=== PATIENT | female | born 1975 | race Caucasian/White ===

== ENCOUNTER → 2020-06-17 14:25 | Outpatient (CLI) | payer OTHER, SELFPAY ==
--- NOTE | ~2020-06-17 | MR_ITS ---
EXAMINATION: MR cervical spine wo con DATE: 06/17/2020 15:06 INDICATION: Cervicobrachial syndrome. Neck pain. TECHNIQUE: Magnetic resonance imaging (MRI) of the cervical spine was performed without intravenous c ontrast. Sequences included sagittal T2-weighted FSE, sagittal T2-weighted FS FSE, sagittal T1-weight ed FSE, axial MERGE, and axial T2-weighted FSE. COMPARISON: None FINDINGS: Bone alignment is normal. Vertebral body heights are normal. There is mildly decreased disc height at C4-C5 and C5-C6. The spinal cord signal intensity is normal. The following disc levels are specifically discussed: C2-C3: The disc is bulging. There is mild left uncovertebral joint osteoarthritis. There is mild bila teral facet joint osteoarthritis. There is no neural foraminal stenosis. There is no central canal st enosis. C3-C4: The disc does not extend beyond the endplate margin. There is no uncovertebral joint osteoarth ritis. There is mild bilateral facet joint osteoarthritis. There is no neural foraminal stenosis. The re is no central canal stenosis. C4-C5: There is a central extrusion. There is no uncovertebral joint osteoarthritis. There is mild bi lateral facet joint osteoarthritis. There is no neural foraminal stenosis. There is mild central su l stenosis. C5-C6: The disc is bulging. There is mild bilateral uncovertebral joint osteoarthritis. There is mild bilateral facet joint osteoarthritis. There is no neural foraminal stenosis. There is mild central c anal stenosis. C6-C7: There is a central protrusion. There is no uncovertebral joint osteoarthritis. There is no fac et joint osteoarthritis. There is no neural foraminal stenosis. There is no central canal stenosis. C7-T1: The disc does not extend beyond the endplate margin. There is no uncovertebral joint osteoarth ritis. There is mild bilateral facet joint osteoarthritis. There is no neural foraminal stenosis. The re is no central canal stenosis. IMPRESSION: 1. Mild cervical spondylosis. Reviewed, dictated and finalized at location A.
== END ==
DX: M53.1 Cervicobrachial syndrome (principal); M47.892 Other spondylosis, cervical region
CPT/HCPCS: 72141

== ENCOUNTER → 2020-10-14 11:06 | Outpatient (CLI) | payer OTHER, SELFPAY ==
--- NOTE | ~2020-10-14 | XR_ITS ---
EXAMINATION: XR chest 2V 10/14/2020 11:31 INDICATION: Dyspnea with exertion PROCEDURE: 2 view chest COMPARISON: 01/18/2013 FINDINGS: The lungs are clear. The cardiomediastinal silhouette is within normal limits. There are no pleural effusions. There is no pneumothorax suspected. IMPRESSION: 1: NO ACUTE CARDIOPULMONARY DISEASE. Reviewed, dictated and finalized at location A. IALIST PHYSICIAN
== END ==
PROVIDERS: Visit Provider Nurse Practitioner Family
DX: R06.09 Other forms of dyspnea (principal)
CPT/HCPCS: 71046

== ENCOUNTER → 2020-10-29 12:54 | Outpatient (CLI) | payer OTHER, SELFPAY ==
--- NOTE | ~2020-10-29 | CT_ITS ---
EXAMINATION: CT chest wo con DATE: 10/29/2020 13:12 INDICATION: Chest pain, atypical; shortness of breath. Arm numbness. TECHNIQUE: Computed tomography (CT) of the chest was performed without intravenous contrast. Automate d exposure control and iterative reconstruction technique were employed. Exam dose: 161.65 mGy-cm to mariam exam DLP. COMPARISON: 10/14/2020 2 view chest FINDINGS: Normal heart size. No pericardial or pleural effusion. The ascending aorta measures up to approximately 4 cm diameter; the mid thoracic aortic arch and desc ending thoracic aorta are normal caliber. No hilar or mediastinal mass lesion or lymphadenopathy. Approximately 2.5 mm superior segment right lower lobe pulmonary nodule (series 4 image 60). Left upper lobe calcified pulmonary granuloma. No pulmonary infiltrate or consolidation or pulmonary mass lesion. Small sliding type hiatal hernia. Incidental finding of gastric bypass surgery. IMPRESSION: Ascending aortic aneurysm Small sliding hiatal hernia Status post gastric bypass surgery Reviewed, dictated and finalized at Location A. Reviewed, dictated and finalized at location A. MAKER TRIM
== END ==
PROVIDERS: PCP Family Medicine; Visit Provider Family Medicine
DX: R07.89 Other chest pain (principal); I71.4 Abdominal aortic aneurysm, without rupture; Z98.84 Bariatric surgery status
CPT/HCPCS: 71250

== ENCOUNTER → 2021-08-26 15:21 | Outpatient (CLI) | payer BC, SELFPAY ==
--- NOTE | ~2021-08-26 | MR_ITS ---
EXAMINATION: MR thoracic spine wo con DATE: 08/26/2021 16:52 INDICATION: Paresthesias of skin with numbness to the bilateral upper and lower extremities. TECHNIQUE: Magnetic resonance imaging (MRI) of the thoracic spine was performed without intravenous c ontrast. Sagittal localizer T1-weighted FSE of the cervicothoracic spine was obtained. Thoracic spine sequences included sagittal T2-weighted FSE, sagittal T1-weighted SE, sagittal fluid sensitive FSE S TIR, sagittal T2-weighted FS FSE, and axial T2-weighted FSE. COMPARISON: None FINDINGS: Mild thoracic dextrocurvature. Sagittal alignment is normal. Vertebral body heights are normal. T1 hy perintense hemangiomas at T10 and T12. Otherwise normal marrow signal. Mild disc height extending fro m T2 to T3 through T12-L1 relatively sparing at T11-T12. There is normal spinal cord signal. The conu s terminates at L1. Small central disc protrusion at T9-T10 and T10-T11 and mild diffuse disc bulge a t T12-L1 without significant central canal stenosis. Multilevel mild thoracic facet osteoarthritis. N o significant neural foraminal stenosis. IMPRESSION: 1. Mild thoracic dextrocurvature and mild spondylosis. Reviewed, dictated and finalized at location B.
--- NOTE | ~2021-08-26 | MR_ITS ---
EXAMINATION: MR cervical spine wo con DATE: 08/26/2021 16:52 INDICATION: Paresthesias of skin. Bilateral arm and leg numbness. TECHNIQUE: Magnetic resonance imaging (MRI) of the cervical spine was performed without intravenous c ontrast. Sequences included sagittal T2-weighted FSE, sagittal STIR FSE, sagittal T1-weighted FSE, ax ial MERGE, and axial T2-weighted FSE. COMPARISON: Cervical spine MRI 06/17/2020 FINDINGS: There is 7 degrees dextrocurvature of cervicothoracic spine. Vertebral body heights are nor mal. There is mildly decreased disc height at C4-C5 and C5-C6. The spinal cord signal intensity is no rmal. The following disc levels are specifically discussed: C2-C3: The disc is bulging. There is mild left uncovertebral joint osteoarthritis. There is mild bila teral facet joint osteoarthritis. There is no neural foraminal stenosis. There is no central canal st enosis. C3-C4: The disc does not extend beyond the endplate margin. There is no uncovertebral joint osteoarth ritis. There is no facet joint osteoarthritis. There is no neural foraminal stenosis. There is no keith tral canal stenosis. C4-C5: There is a central protrusion. There is no uncovertebral joint osteoarthritis. There is no fac et joint osteoarthritis. There is no neural foraminal stenosis. There is no central canal stenosis. C5-C6: There is a left central and foraminal zone extrusion. There is mild bilateral uncovertebral abdirashid int osteoarthritis. There is no facet joint osteoarthritis. There is mild left neural foraminal steno sis. There is mild central canal stenosis. C6-C7: The disc does not extend beyond the endplate margin. There is no uncovertebral joint osteoarth ritis. There is mild left facet joint osteoarthritis. There is no neural foraminal stenosis. There is no central canal stenosis. C7-T1: The disc does not extend beyond the endplate margin. There is no uncovertebral joint osteoarth ritis. There is mild left facet joint osteoarthritis. There is no neural foraminal stenosis. There is no central canal stenosis. IMPRESSION: 1. Mild cervical spondylosis, stable from 06/17/2020. Reviewed, dictated and finalized at location A.
== END ==
PROVIDERS: PCP Family Medicine; Visit Provider Psychiatry & Neurology Neurology
DX: R20.2 Paresthesia of skin (principal); R20.0 Anesthesia of skin; M41.9 Scoliosis, unspecified; M47.815 Spondylosis without myelopathy or radiculopathy, thoracolumbar region; M47.813 Spondylosis without myelopathy or radiculopathy, cervicothoracic region; M48.03 Spinal stenosis, cervicothoracic region
CPT/HCPCS: 72141; 72146

== ENCOUNTER → 2021-11-18 10:58 | Outpatient (CLI) | payer BC, SELFPAY ==
--- NOTE | ~2021-11-18 | CT_ITS ---
EXAMINATION:CT diagnostic chest wo con DATE: 11/18/2021 11:16 INDICATION: Thoracic aortic aneurysm. Chest tightness. TECHNIQUE: Computed tomography (CT) of the chest was performed without intravenous contrast. Automate d exposure control and iterative reconstruction technique were employed. The dose-length product (DLP ) was 146.35 mGy-cm. COMPARISON: Chest CT 10/29/2020 FINDINGS: The lungs demonstrate minimal atelectasis. A calcified left lung nodule is consistent with old granulomatous disease. No pleural effusion. The heart size is normal. No pericardial effusion. As cending aorta is normal in caliber and measures 3.8 cm. There are surgical changes of the stomach. Th ere is mild thoracic spondylosis. Thoracic dextroscoliosis is noted. IMPRESSION: 1. Normal thoracic aorta. Reviewed, dictated and finalized at location B. TER WEIGHER IMPRESSION: 1. Normal thoracic aorta.
== END ==
PROVIDERS: PCP Family Medicine; Visit Provider Nurse Practitioner
DX: I71.2 Thoracic aortic aneurysm, without rupture (principal)
CPT/HCPCS: 71250

== ENCOUNTER → 2023-02-05 11:59 | Outpatient (CLI) | payer BC, SELFPAY ==
--- NOTE | ~2023-02-05 | XR_ITS ---
EXAMINATION: XR fl inj shoulder RT - MR/CT DATE: 02/05/2023 13:04 INDICATION: Right shoulder pain TECHNIQUE: A time-out was performed to verify the patient's name, date of , and procedure to b e performed. The procedure including the risks, benefits, and alternatives was discussed with the pat ient. Risks discussed included bleeding and infection. The patient understood the risks and agreed to proceed. The skin overlying the rotator cuff interval of the right glenohumeral joint was prepped a nd draped in usual sterile fashion. Anesthetic was administered with 1% lidocaine subcutaneously. A 22 G needle was advanced under fluoroscopic guidance into the joint. Injection of 1 mL of Omnipaque 240 confirmed intra-articular position of the needle. Subsequently, injectate consisting of 12 mL o f 2:1:1 mixture of sterile saline:Omnipaque 240:1% lidocaine mixed 200:1 with 529 mg/mL Multihance ga dolinium contrast was injected with intra-articular administration confirmed with intermittent fluoro scopy. The needle was removed and the entry site was cleaned and dressed. There were no immediate co mplications. Fluoroscopy exposure time was 0.3 minutes. The total number of images was 81. Total DAP was 0.246 Gycm^2 FINDINGS: Real-time fluoroscopy demonstrates the needle in the right glenohumeral joint. IMPRESSION: 1. Successful right glenohumeral joint injection of a dilute gadolinium contrast mixed for subsequent MRI arthrogram which will be dictated separately. Reviewed, dictated and finalized at location B. IMPRESSION: 1. Successful right glenohumeral joint injection of a dilute gadolinium contras t mixed for subsequent MRI arthrogram which will be dictated separately.
--- NOTE | ~2023-02-05 | MR_ITS ---
EXAMINATION: MR shoulder RT w con DATE: 02/05/2023 13:21 INDICATION: Right shoulder pain TECHNIQUE: Magnetic resonance imaging (MRI) of the right shoulder was performed following intra-abril cular gadolinium contrast injection and without intravenous contrast. Details of the glenohumeral nina nt injection have been dictated separately. Sequences included axial T2-weighted FS FSE, axial T1-we ighted FS FSE, coronal oblique T1-weighted FS FSE, coronal oblique T2-weighted FSE, sagittal T2-weigh gael FS FSE, sagittal T1-weighted FSE, and ABER (abduction external rotation) T1-weighted FS FSE. COMPARISON: None. FINDINGS: Coracoacromial arch: The acromion undersurface is curved in morphology (type II). The coracoacromial ligament is normal. M ild acromioclavicular osteoarthritis. Rotator cuff: The supraspinatus, infraspinatus and teres minor are normal. The subscapularis is normal. There is a small amount of contrast within the cephalad-most portion of the supraspinatus muscle belly and into the fat at the rotator cuff interval. This extravasation was observed occurring at the site of inject ion due to the needle backing out slightly during the very beginning of the joint injection. The need le was repositioned with no further extravasation of contrast during the remainder of the joint injec tion which was observed with intermittent fluoroscopy. Otherwise normal muscle signal with no asymmet mahin atrophy. Biceps tendon, glenoid labrum and glenohumeral cartilage: Long head of the biceps tendon is intact. There is a superior, anterior to posterior tear of the eric oid labrum (SLAP tear) beginning anteriorly at the 12:00 position and extending posteriorly to the 11 :00 position. The inferior labrum is diminutive. Glenohumeral cartilage is normal. Bones and other: Normal marrow signal with no edema, fracture or abnormal marrow replacing process. Small amount of f luid in the subacromial/subdeltoid bursa consistent with mild bursitis. No abnormal fluid in the suba cromial/subdeltoid bursa. IMPRESSION: 1. SLAP tear at the 12:00-11:00 position of the posterosuperior glenoid labrum. Reviewed, dictated and finalized at location B.
== END ==
PROVIDERS: PCP Family Medicine
DX: S43.431A Superior glenoid labrum lesion of right shoulder, initial encounter (principal); X58.XXXA Exposure to other specified factors, initial encounter
CPT/HCPCS: 23350; 73222; 77002; A9577; Q9967

== ENCOUNTER → 2023-09-14 11:25 | Outpatient (CLI) | payer BC, SELFPAY ==
--- NOTE | ~2023-09-14 | MM_ITS ---
EXAMINATION: MM screening [facility] w jack HISTORY: Screening mammogram TECHNIQUE: Craniocaudal and mediolateral oblique 3-D tomosynthesis images were obtained and synthetic 2-D images were generated. CAD analysis was submitted and interpreted. COMPARISON: No prior mammogram is available for comparison at this institution. BREAST PARENCHYMAL COMPOSITION: The breasts are heterogeneously dense, which may obscure small masses . FINDINGS: There is no evidence of suspicious mass, calcification, or architectural distortion to sugg est malignancy in either breast. IMPRESSION: 1. No mammographic evidence of malignancy. 2. Recommend routine screening mammography in one year. BI-RADS Category 1: Negative Reviewed, dictated and finalized at location A.
== END ==
PROVIDERS: Visit Provider Family Medicine
DX: Z12.31 Encounter for screening mammogram for malignant neoplasm of breast (principal)
CPT/HCPCS: 77063; 77067

== ENCOUNTER 2024-09-18 13:37 | Outpatient (CLI) | payer OTHER, BC, SELFPAY ==
--- NOTE | ~2024-09-18 | MM_ITS ---
EXAMINATION: MM screening [facility] BI w jack HISTORY: Screening mammogram TECHNIQUE: Craniocaudal and mediolateral oblique 3-D tomosynthesis images were obtained and synthetic 2-D images were generated. CAD analysis was submitted and interpreted. COMPARISON: 09/14/2023 BREAST PARENCHYMAL COMPOSITION:Dense: The breasts are heterogeneously dense, which may obscure small masses. FINDINGS: Stable calcifications at the upper, outer right breast. No suspicious mass, calcification, or architectural distortion are identified in either breast to suggest malignancy. There has been no suspicious interval change. IMPRESSION: No mammographic evidence of malignancy. Recommend routine screening mammography in one year. BI-RADS Category 2: Benign finding(s). Reviewed, dictated and finalized at location .
== END 2024-09-18 13:38 | disposition home or self-care (01) ==
PROVIDERS: PCP Internal Medicine; Visit Provider Internal Medicine
DX: Z12.31 Encounter for screening mammogram for malignant neoplasm of breast (principal)
CPT/HCPCS: 77063; 77067

== ENCOUNTER 2025-10-02 14:30 | Outpatient (CLI) | payer OTHER, BC, SELFPAY ==
--- NOTE | ~2025-10-02 | MM_ITS ---
EXAMINATION: MM screening [facility] BI w jack HISTORY: Screening TECHNIQUE: Craniocaudal and mediolateral oblique 3-D tomosynthesis images were obtained and synthetic 2-D images were generated. CAD analysis was submitted and interpreted. COMPARISON: Comparison to multiple prior studies sequentially, with oldest reviewed study dated 09/14/2023. BREAST PARENCHYMAL COMPOSITION: Not dense: There are scattered areas of fibroglandular density. FINDINGS: There are increasing number of indeterminate clustered calcifications upper outer quadrant of the right breast, middle third. The left breast is stable without evidence for malignancy. IMPRESSION: 1. No mammographic evidence of malignancy. Cluster of indeterminate calcifications upper outer quadrant of the left breast with increased number compared with prior study. 2. Magnification views are recommended. BI-RADS Category 0: Incomplete: Needs additional imaging evaluation. Reviewed, dictated and finalized at location B. L FITTER IMPRESSION: 1. No mammographic evidence of malignancy. Cluster of indeterminate calcificati ons upper outer quadrant of the left breast with increased number compared with prior study. 2. Magnification views are recommended. BI-RADS Category 0: Incomplete: Needs additional imaging evaluation.
== END 2025-10-02 14:31 | disposition home or self-care (01) ==
LOC: MICIMG 14:31
PROVIDERS: PCP Internal Medicine; Visit Provider Obstetrics & Gynecology
DX: Z12.31 Encounter for screening mammogram for malignant neoplasm of breast (principal); R92.8 Other abnormal and inconclusive findings on diagnostic imaging of breast
CPT/HCPCS: 77063; 77067

== ENCOUNTER 2025-11-20 09:23 | Outpatient (CLI) | payer OTHER, BC, SELFPAY ==
--- OUTSIDE RECORDS SUMMARY | 2025-05-21 08:30 | XMS_ITS ---
Author Organization [facility] [place] ([address]) Address [address] [address] Care Team Providers Care Slide Machine Tender Name Role Phone Ashish Gonzalez Primary Care Provider Felicity Mays Unavailable [phone] Vito Chin Unavailable [phone] REASON FOR VISIT POWER REGULATOR IV Fluids Medications Medication SIG (Take, Route, Frequency, Duration) Notes Start Date End Date Status Mirabegron ER 50 MG TAKE 1 TABLET BY MOUTH DAILY Oral; Duration: 20 Days Active ALPRAZolam 0.5 MG TAKE 1 TABLET BY MOUTH THREE TIMES DAILY NEEDED Oral; Duration: 30 Days Active Eszopiclone 3 MG TAKE 1 TABLET BY MOUTH EVERY DAY Oral; Duration: 30 Days Active HYDROcodone-Acetaminop hen 5-325 MG Oral; Duration: 15 Days Active Topiramate 50 MG 2 tablets in AM, then 3 tablets in PM Orally as directed; Duration: 30 days (total 250 mg daily) 05/09/2025 Active Nortriptyline HCl 10 MG TAKE 1 CAPSULE BY MOUTH AT BEDTIME Oral; Duration: 30 Days Active Emgality 120 MG/ML 1 injection as maintenance dose Subcutaneous once every 4 weeks; Duration: 28 days To start 4 weeks after loading dose 06/04/2025 Active Ubrelvy 100 MG 1 tablet Orally twice a day; Duration: 30 days As needed Active Emgality 120 MG/ML 2 injections as LOADING DOSE for the first month Subcutaneous once; Duration: 28 days 05/07/2025 Active Social History Sex Assigned At : Social History Observation Description Sex Assigned At Female Vital Signs Temperature 98.4 degrees Fahrenheit 05/21/20 25 Blood pressure systolic 126 mm Hg 05/21/20 25 Blood pressure diastolic 79 mm Hg 025 Respiratory Rate 16 /min 05/21/2025 Oximetry 100 % 05/21/2025 Encounters Encounter Location Date Provider Diagnosis [facility] [place] ([address]) [address] [place] [address] 05/21/2025 Vito Chin Hormone replacement therapy Z79.890 Assessments Encounter Date Diagnosis (ICD Code) Assessment Notes Treatment Notes Treatment Clinical Notes Section Notes 05/21/2025 Hormone replacement therapy (ICD-10 - Z79.890) Post infusion vitals BP 127/75, HR 64, R 16,T 98.2, 02 97% Plan Of Treatment No Information Procedure Notes * Category Sub-Category Detail Notes Quell: IV Fluid Micronutriti on & Hydration IV Fluid Preparation Quell Signature Blend A: Quell's Blend Volume 0.9% Sodium Chloride, PRISON: 1000 mL Infusion Time Total: 60 minutes Reaction Adverse Reaction(s):: None Progress Notes * YOHANNOEMI RenardGeorgeOB :1975 (50 yo F)Acc No.[id number]:05/21/2025 IV Fluids & Nutrition 69 Patient: Apple MENDOZA Provider: Albert Chin MD :1975 A ge:49 Y S ex:Female Date:05/21/2025 Address: [address], [facility] Pcp:Ashish Gonzalez Subjective: * Chief Complaints: * 1 . POWER REGULATOR IV Fluids. * Medical History: * Medications: T aking HYDROcodone-Acetaminophen 5-325 MG Tablet Oral , Taking ALPRAZolam 0.5 MG Tablet TAKE 1 TABLET BY MOUTH THREE TIMES DAILY NEEDED Oral , Taking Eszopiclone 3 MG Tablet TAKE 1 TABLET BY MOUTH EVERY DAY Oral , Taking Mirabegron ER 50 MG Tablet Extended Release 24 Hour TAKE 1 TABLET BY MOUTH DAILY Oral , Taking Nortriptyline HCl 10 MG Capsule TAKE 1 CAPSULE BY MOUTH AT BEDTIME Oral , Taking Ubrelvy 100 MG Tablet 1 tablet Orally twice a day As needed, Taking Emgality 120 MG/ML Solution Auto-injector 2 injections as LOADING DOSE for the first month Subcutaneous once , Taking Emgality 120 MG/ML Solution Auto-injector 1 injection as maintenance dose Subcutaneous once every 4 weeks , Notes to Pharmacist: To start 4 weeks after loading dose, Taking Topiramate 50 MG Tablet 2 tablets in AM, then 3 tablets in PM Orally as directed (total 250 mg daily) Objective: * Vitals: T emp:98.4F, BP:126/79mm Hg, HR:72/min, RR:16/min, Pulse Oximetry:100%. Assessment: * Assessment: 1. H ormone replacement therapy - Z79.890 Post infusion vitals BP 127/ 75, HR 64, R 16,T 98.2, 02 97% Plan: * Treatment: * Procedures: Q uell: IV Fluid Micronutrition & Hydration: IV Fluid Preparation Q uell Signature Blend A Q uell's Blend Volume 0 .9% Sodium Chloride, PRISON 1 000 mL Infusion Time T otal 6 0 minutes Reaction A dverse Reaction(s): N one * Billing Information: * Visit Code: * Procedure Codes: 12877 Quell Terrie IV Fluid (monthly). * Electronic signature of Solo Chin MD, FAAAAI on 11/20/2025 at 09:39 AM BIRD KEEPER Sign off status: Pending * Provider: Albert Chin MD Date: 0 05/21/2025 Generated for Leandro lucas/Gabriel/Sydneeitting on: 09:39 AM BIRD KEEPER
--- OUTSIDE RECORDS SUMMARY | 2025-05-21 09:30 | XMS_ITS ---
Author Organization [facility] [place] ([address]) Address [address] [address] Care Team Providers Care Fish Protector Name Role Phone Ashish Gonzalez Primary Care Provider Felicity Mays Unavailable [phone] Vito Chin Unavailable [phone] REASON FOR VISIT PAN PUSHER BHRT Medications Medication SIG (Take, Route, Frequency, Duration) Notes Start Date End Date Status Topiramate 50 MG 2 tablets in AM, then 3 tablets in PM Orally as directed; Duration: 30 days (total 250 mg daily) 05/09/2025 Active Emgality 120 MG/ML 1 injection as maintenance dose Subcutaneous once every 4 weeks; Duration: 28 days To start 4 weeks after loading dose 06/04/2025 Active Emgality 120 MG/ML 2 injections as LOADING DOSE for the first month Subcutaneous once; Duration: 28 days 05/07/2025 Active Ubrelvy 100 MG 1 tablet Orally twice a day; Duration: 30 days As needed Active Nortriptyline HCl 10 MG TAKE 1 CAPSULE BY MOUTH AT BEDTIME Oral; Duration: 30 Days Active Mirabegron ER 50 MG TAKE 1 TABLET BY MOUTH DAILY Oral; Duration: 20 Days Active Eszopiclone 3 MG TAKE 1 TABLET BY MOUTH EVERY DAY Oral; Duration: 30 Days Active ALPRAZolam 0.5 MG TAKE 1 TABLET BY MOUTH THREE TIMES DAILY NEEDED Oral; Duration: 30 Days Active HYDROcodone-Acetaminop hen 5-325 MG Oral; Duration: 15 Days Active Social History Sex Assigned At : Social History Observation Description Sex Assigned At Female Encounters Encounter Location Date Provider Diagnosis [facility] [place] ([address]) [address] [address] 05/21/2025 Vito Chin Assessments Encounter Date Diagnosis (ICD Code) Assessment Notes Treatment Notes Treatment Clinical Notes Section Notes 05/21/2025 Other Discussed recommendations for the following supplements:-Vitami n D, Biote ADK 10 or Pure Encapsulations Vitamin D3-Biote Methyl factors or Pure Encapsulations B-Complex Plus-Fatty 15 Plan Of Treatment Treatment Notes Assessment Notes Other Discussed recommenda tions for the following supplements:-Vitamin D, Biote ADK 10 or Pure Encapsulations Vitamin D3-Biote Methyl factors or Pure Encapsulations B-Complex Plus-Fatty 15 Progress Notes * JERONIMOJordan BUCKOB :1975 (50 yo F)Acc No.[id number]:05/21/2025 PAN PUSHER RT Patient: Apple MENDOZA Provider: Albert Chin MD :1975 A ge:49 Y S ex:Female Date:05/21/2025 Address:[address] [place] [address] [place] [facility] Pcp:Ashish Gonzalez Subjective: * Chief Complaints: * 1 . PAN PUSHER BHRT. * Medical History: * Medications: T aking [...] (total 250 mg daily) Objective: * Vitals: Assessment: Plan: * Treatment: * Billing Information: * Visit Code: * Procedure Codes: * Electronic signature of Solo Chin MD, FAAAAI on 11/20/2025 at 09:40 AM MACHINE BASTER Sign off status: Pending * Provider: Albert Chin MD Date: 0 05/21/2025 Generated for Leandro lucas/Gabriel/Tiffany on: 1 09:40 AM MACHINE BASTER
--- OUTSIDE RECORDS SUMMARY | 2025-06-04 09:30 | XMS_ITS ---
Author Organization [facility] [place] ([address]) Address [address] [address] Care Team Providers Care Manager Training And Development Name Role Phone Ashish Gonzalez Primary Care Provider Felicity Mays Unavailable [phone] Vito Chin Unavailable [phone] REASON FOR VISIT IV Fluids Follow-up Medications Medication SIG (Take, Route, Frequency, Duration) Notes Start Date End Date Status Nortriptyline HCl 10 MG TAKE 1 CAPSULE BY MOUTH AT BEDTIME Oral; Duration: 30 Days Active Ubrelvy 100 MG 1 tablet Orally twice a day; Duration: 30 days As needed Active Topiramate 50 MG 2 tablets in AM, then 3 tablets in PM Orally as directed; Duration: 30 days (total 250 mg daily) 05/09/2025 Active Emgality 120 MG/ML 2 injections as LOADING DOSE for the first month Subcutaneous once; Duration: 28 days 05/07/2025 Active Emgality 120 MG/ML 1 injection as maintenance dose Subcutaneous once every 4 weeks; Duration: 28 days To start 4 weeks after loading dose 06/04/2025 Active Eszopiclone 3 MG TAKE 1 TABLET BY MOUTH EVERY DAY Oral; Duration: 30 Days Active Mirabegron ER 50 MG TAKE 1 TABLET BY MOUTH DAILY Oral; Duration: 20 Days Active HYDROcodone-Acetaminop hen 5-325 MG Oral; Duration: 15 Days Active ALPRAZolam 0.5 MG TAKE 1 TABLET BY MOUTH THREE TIMES DAILY NEEDED Oral; Duration: 30 Days Active Social History Sex Assigned At : Social History Observation Description Sex Assigned At Female Encounters Encounter Location Date Provider Diagnosis [facility] [place] ([address]) [address] [place] [address] 06/04/2025 Vito Chin Plan Of Treatment No Information Procedure Notes * Category Sub-Category Detail Notes Quell: IV Fluid Micronutriti on & Hydration IV Fluid Preparation Quell Signature Blend A: Quell's Blend Volume 0.9% Sodium Chloride, LONGTERM: 1000 mL Infusion Time Total: 60 minutes Reaction Adverse Reaction(s):: None Progress Notes * EMELIAJASMINJose FranciscoRenard BUCKenDOB :1975 (50 yo F)Acc No.[id number]:06/04/2025 IV Fluids & Nutrition 69 Patient: Sheree ZIEGLERMANGOApple Provider: Albert Chin MD :1975 A ge:49 Y S ex:Female Date:06/04/2025 [facility] [facility] Pcp:Ashish Gonzalez Subjective: * Chief Complaints: * 1 . IV Fluids Follow-up. * Medical History: * Medications: T aking [...] * Vitals: Assessment: Plan: * Treatment: * Procedures: Q uell: IV Fluid Micronutrition & Hydration: IV Fluid Preparation Q uell Signature Blend A Q uell's Blend Volume 0 .9% Sodium Chloride, LONGTERM 1 000 mL Infusion Time T otal 6 0 minutes Reaction A dverse Reaction(s): N one T oradol 30 mg IV added. * Billing Information: * Visit Code: * Procedure Codes: * Electronic signature of Solo Chin MD, FAAAAI on 11/20/2025 at 09:39 AM APPAREL STOCK CHECKER Sign off status: Pending * Provider: Albert Chin MD Date: 0 06/04/2025 Generated for Leandro lucas/Gabriel/Tiffany on: 1 09:39 AM APPAREL STOCK CHECKER
--- OUTSIDE RECORDS SUMMARY | 2025-06-13 03:00 | XMS_ITS ---
Author Organization [facility] [place] ([address]) Address [address] [address] Care Team Providers Care Docket Clerk Name Role Phone Ashish Gonzalez Primary Care Provider Felicity Mays Unavailable [phone] Vito Chin Unavailable [phone] REASON FOR VISIT IV Fluids Follow-up Medications Medication SIG (Take, Route, Frequency, Duration) Notes Start Date End Date Status Emgality 120 MG/ML 1 injection as maintenance dose Subcutaneous once every 4 weeks To start 4 weeks after loading dose 06/04/2025 Active Ubrelvy 100 MG 1 tablet Orally twice a day As needed Active Topiramate 50 MG 2 tablets in AM, then 3 tablets in PM Orally as directed (total 250 mg daily) 05/09/2025 Active Emgality 120 MG/ML 2 injections as LOADING DOSE for the first month Subcutaneous once; Duration: 28 days 05/07/2025 Active Cyclobenzaprine HCl 5 MG 1 tablet Orally 3 times a day; Duration: 30 days As needed 06/07/2025 Active Mirabegron ER 50 MG TAKE 1 TABLET BY MOUTH DAILY Oral; Duration: 20 Days Active Eszopiclone 3 MG TAKE 1 TABLET BY MOUTH EVERY DAY Oral; Duration: 30 Days Active Nortriptyline HCl 10 MG TAKE 1 CAPSULE B Y MOUTH AT BEDTIME Oral; Duration: 30 Days Active ALPRAZolam 0.5 MG TAKE 1 TABLET BY MOUTH THREE TIMES DAILY NEEDED Oral; Duration: 30 Days Active HYDROcodone-Acetaminoph en 5-325 MG Oral; Duration: 15 Days Active Social History Sex Assigned At : Social History Observation Description Sex Assigned At Female Encounters Encounter Location Date Provider Diagnosis [facility] [place] ([address]) [address] [place] [address] 06/13/2025 Vito Chin Plan Of Treatment No Information Procedure Notes * Category Sub-Category Detail Notes Quell: IV Fluid Micronutriti on & Hydration IV Fluid Preparation Quell Signature Blend A: Quell's Blend Volume 0.9% Sodium Chloride, HALFWAY: 1000 mL Infusion Time Total: 60 minutes Reaction Adverse Reaction(s):: None Progress Notes * Jordan LOPEZOB :1975 (50 yo F)Acc No.[id number]:06/13/2025 IV Fluids & Nutrition 69 Patient: Sheree Apple GUADALUPE Provider: Albert Chin MD :1975 A ge:49 Y S ex:Female Date:06/13/2025 Address:[address] [place] [address] [facility] Pcp:Ashish Gonzalez Subjective: * Chief Complaints: [...] BY MOUTH AT BEDTIME Oral , Taking Emgality 120 MG/ML Solution Auto-injector 2 injections as LOADING DOSE for the first month Subcutaneous once , Taking Ubrelvy 100 MG Tablet 1 tablet Orally twice a day As needed, Taking Emgality 120 MG/ML Solution Auto-injector 1 injection as maintenance dose Subcutaneous once every 4 weeks , Notes to Pharmacist: To start 4 weeks after loading dose, Taking Topiramate 50 MG Tablet 2 tablets in AM, then 3 tablets in PM Orally as directed (total 250 mg daily), Taking Cyclobenzaprine HCl 5 MG Tablet 1 tablet Orally 3 times a day As needed Objective: * Vitals: Assessment: Plan: * Treatment: * Procedures: Q uell: IV Fluid Micronutrition & Hydration: IV Fluid Preparation Q uell Signature Blend A Q uell's Blend Volume 0 .9% Sodium Chloride, HALFWAY 1 000 mL Infusion Time T otal 6 0 minutes Reaction A dverse Reaction(s): N one * Billing Information: * Visit Code: * Procedure Codes: * Electronic signature of Solo Chin MD, FAAAAI on 11/20/2025 at 09:40 AM CATALYTIC CASE OPERATOR Sign off status: Pending * Provider: Albert Chin MD Date: 0 06/13/2025 Generated for Leandro lucas/Gabriel/Tiffany on: 1 09:40 AM CATALYTIC CASE OPERATOR
--- OUTSIDE RECORDS SUMMARY | 2025-07-19 11:00 | XMS_ITS ---
Author Organization [facility] [facility] [employer] [place] ([address]) Address [address] [address] Care Team Providers Care Floral Manager Name Role Phone Ashish Gonzalez Primary Care Provider Felicity Mays Unavailable [phone] Vito Chin [phone] REASON FOR VISIT Product or Supplement Purchase Social History Sex Assigned At : Social History Observation Description Sex Assigned At Female Encounters Encounter Location Date Provider Diagnosis [facility] ([address]) [address] [address] 07/19/2025 Vito Chin Plan Of Treatment No Information Progress Notes * Jordan LOPEZOB :1975 (50 yo F)Acc No.[id number]:07/19/2025 Purchase Patient: Sheree KNUTSONNOEMIAdrianApple Provider: Albert Chin MD :1975 A ge:49 Y S ex:Female Date:07/19/2025 [address] [facility] Pcp:Ashish Gonzalez Subjective: * Chief Complaints: * 1 . Product or Supplement Purchase. * Medical History: Objective: * Vitals: Assessment: Plan: * Treatment: * Billing Information: * Visit Code: * Procedure Codes: * Electronic signature of Solo Chin MD, FAAAAI on 11/20/2025 at 09:40 AM AIRPORT BAGGAGE SCREENER Sign off status: Pending * Provider: Albert Chin MD Date: 0 07/19/2025 Generated for Leandro lucas/Gabriel/Tiffany on: 1 09:40 AM AIRPORT BAGGAGE SCREENER
--- OUTSIDE RECORDS SUMMARY | 2025-09-05 11:30 | XMS_ITS ---
Author Organization [facility] [place] ([address]) Address [address] [facility] [address] [place] [address] Care Team Providers Care Farm Labor Contractor Name Role Phone Gonzalez Ashish Primary Care Provider UnavailFelicity Forrest Unavailable [phone] REASON FOR VISIT Chronic upper airway symptoms concerning for uncontrolled atopic disease, Chronic lower airways symptoms concerning for possible asthma Social History Sex Assigned At : Social History Observation Description Sex Assigned At Female Problems Problem Type SNOMED Code ICD Code Onset Dates Problem Status W/U Status Risk Notes Problem Allergic rhinitis caused by pollen (disorder) (78516703) Allergic rhinitis due to pollen (J30.1) Active confirmed Problem Allergic rhinitis caused by animal hair and dander ([id number]) Allergic rhinitis due to animal (cat) (dog) hair and dander (J30.81) Active confirmed Problem Allergic rhinitis (16283116) Other allergic rhinitis (J30.89) Active confirmed Problem Chronic allergic conjunctivitis (58887743) Other chronic allergic conjunctivitis (H10.45) Active confirmed Encounters Encounter Location Date Provider Diagnosis [facility] [address] [facility] [address] [place] [address] 09/05/2025 Felicity Roland Allergic rhinitis du e to pollen J30.1 ; Allergic rhinitis due to animal (cat) (dog) hair and dander J30.81 ; Other allergic rhinitis J30.89 ; Other chronic allergic conjunctivitis H10.45 ; Hypertrophy of nasal turbinates J34.3 ; Chronic rhinitis J31.0 ; Moderate persistent asthma, uncomplicated J45.40 ; Mild persistent asthma, uncomplicated J45.30 and Severe persistent asthma, uncomplicated J45.50 Assessments Encounter Date Diagnosis (ICD Code) Assessment Notes Treatment Notes Treatment Clinical Notes Section Notes 09/05/2025 Allergic rhinitis due to pollen (ICD-10 - J30.1) Given the history and symptoms, skin testing was performed to common aeroallergens to determine atopic status. clearly suffers from atopic disease based upon our skin testing and clinical history. Accordingly, we have introduced a new, aggressive medication regimen, discussed nasal washes and allergy-specific avoidance measures. We also discussed adjunctive therapies including subcutaneous, specific allergen immunotherapy as relates to the treatment and prevention of atopic disease. They are currently considering the risks, benefits and alternatives to this care. Risks: bleeding, infection, allergic reaction, anaphylaxis; Benefits: reduced need for medications, improved symptoms, disease modification. Alternatives: watch/wait, change medication regimen, improve allergy avoidance measures. Follow-up in 1 month for interval evaluation and management 09/05/2025 Allergic rhinitis due to animal (cat) (dog) hair and dander (ICD-10 - J30.81) Follow allergen avoidance, meds and consider SCIT as an adjunctive treatment to current regimen 09/05/2025 Other allergic rhinitis (ICD-10 - J30.89) Follow allergen avoidance, meds and consider SCIT as an adjunctive treatment to current regimen 09/05/2025 Other chronic allergic conjunctivitis (ICD-10 - H10.45) Given ocular signs and symptoms I encouraged allergy avoidance measures and meds as above. If symptoms persist, consider adding additional medications including intraocular antihistamine/mas t cell stabilizer, PRN and consider SCIT as an adjunctive measure 09/05/2025 Hypertrophy of nasal turbinates (ICD-10 - J34.3) 09/05/2025 Chronic rhinitis (ICD-10 - J31.0) 09/05/2025 Moderate persistent asthma, uncomplicated (ICD-10 - J45.40) 09/05/2025 Mild persistent asthma, uncomplicated (ICD-10 - J45.30) 09/05/2025 Severe persistent asthma, uncomplicated (ICD-10 - J45.50) Plan Of Treatment Treatment Notes Assessment Notes Allergic rhinitis due to pollen Given th e history and symptoms, skin testing was performed to common aeroallergens to determine atopic status. clearly suffers from atopic disease based upon our skin testing and clinical history. Accordingly, we have introduced a new, aggressive medication regimen, discussed nasal washes and allergy-specific avoidance measures. We also discussed adjunctive therapies including subcutaneous, specific allergen immunotherapy as relates to the treatment and prevention of atopic disease. They are currently considering the risks, benefits and alternatives to this care. Risks: bleeding, infection, allergic reaction, anaphylaxis; Benefits: reduced need for medications, improved symptoms, disease modification. Alternatives: watch/wait, change medication regimen, improve allergy avoidance measures. Follow-up in 1 month for interval evaluation and management Allergic rhinitis due to ani mal (cat) (dog) hair and dander Follow allergen avoidance, meds and consider SCIT as an adjunctive treatment to current regimen Other allergic rhinitis Follow allergen avoidance, meds and consider SCIT as an adjunctive treatment to current regimen Other chronic allergic conjunctivitis Gi prudencio ocular signs and symptoms I encouraged allergy avoidance measures and meds as above. If symptoms persist, consider adding additional medications including intraocular antihistamine/mast cell stabilizer, PRN and consider SCIT as an adjunctive measure Next Appt Details Follow Up: 4 Weeks, Reason: Evaluation and Management Progress Notes * Renard LOPEZGeorgeOB :1975 (50 yo F)Acc No.[id number]:09/05/2025 Progress Notes Patient: Apple MENDOZA Provider: David Roland MD :1975 A ge:49 Y S ex:Female Date:09/05/2025 Address:[address] [place] [address] [facility] Pcp:Ashish Gonzalez Subjective: * Chief Complaints: * 1 . Chronic upper airway symptoms concerning for uncontrolled atopic disease. 2. Chronic lower airways symptoms concerning for possible asthma. * HPI: * Introduction: HPI: x . * ROS: A LLERGY: Positive p er the HPI and history, otherwise unremarkable.? S PECIAL SENSES: Positve for n one. C ONSTITUTIONAL: Positive for n one. E NT: Positive p er the HPI and history, otherwise unremarkable.? R ESPIRATORY: Positive p er the HPI and history, otherwise unremakable.? O PHTHALMOLOGY: Positive for p er the HPI and history, otherwise unremarkable. E NDOCRINOLOGY: Positive for n one. C ARDIOLOGY: Positive for n one. G ASTROENTEROLOGY: Positive for n one. U ROLOGY: Positive for n one. D ERMATOLOGY: Positive for p er the HPI and history, otherwise unremakable. N EUROLOGY: Positive for n one. H EMATOLOGY/LYMPH: Positive for n one. M USCULOSKELETAL: Positive for n one. P SYCHOLOGY: Positive for n one. A ll other review of systems per the HPI and history, otherwise unremarkable. * Medical History: Objective: * Vitals: * Examination: G eneral examination: General appearance: p leasant, well-developed, well-nourished. HEENT: p upils equal, round, and reactive to light and accommodation, conjunctiva are injected bilaterally, no tenderness to palpation of the sinuses, TM's without evidence of acute infection, turbinates 2+ swollen and pale inferiorly bilaterally, clear rhinorrhea is present, no polyps noted, no septal perforation, posterior oropharynx is erythematous and cobblestoning is present, erythema on pharyngeal wall, no exudates, no tongue swelling, and uvula is midline. Oral cavity: n ormal, no lesions. Neck, thyroid : s upple, non-tender, no anterior cervical lymphadenopathy. Breasts : n ot performed. Heart: R RR, S1-S2, no murmurs, no rubs, no gallops. Lungs: c lear to auscultation and percussion in all lung bass, no wheezes or crackles. Abdomen: s oft, NT/ND, normal active bowel sounds. Neurologic exam: u nremarkable. Skin: n ormal, no rash, dermatographism, urticaria, angioedema. Peripheral pulses: n ormal (2+) bilaterally. Back: n ormal. Extremities: n ormal ROM, no clubbing, no cyanosis, no edema. Genitalia: n ot performed. Assessment: * Assessment: 1. A llergic rhinitis due to pollen - J30.1 (Primary) 2 . A llergic rhinitis due to animal (cat) (dog) hair and dander - J30.81 3 . O ther allergic rhinitis - J30.89 4 . O ther chronic allergic conjunctivitis - H10.45 5 . H ypertrophy of nasal turbinates - J34.3 6 . C hronic rhinitis - J31.0? 7. M oderate persistent asthma, uncomplicated - J45.40 8 . M ild persistent asthma, uncomplicated - J45.30 9 . S evere persistent asthma, uncomplicated - J45.50 Plan: * Treatment: 2. A llergic rhinitis due to animal (cat) (dog) hair and dander Notes: Follow allergen avoidance, meds and consider SCIT as an adjunctive treatment to current regimen 3. O ther allergic rhinitis Notes: Follow allergen avoidance, meds and consider SCIT as an adjunctive treatment to current regimen 4. O ther chronic allergic conjunctivitis Notes: Given ocular signs and symptoms I encouraged allergy avoidance measures and meds as above. If symptoms persist, consider adding additional medications including intraocular antihistamine/mast cell stabilizer, PRN and consider SCIT as an adjunctive measure * Procedure Codes: 9 5004 PRICK TESTS, Units: 72.00 , 82955 INTRADERMAL TESTS, 93260 MEASURE BLOOD OXYGEN LEVEL, 38253 SELF-MGMT EDUC & TRAIN, 1 PT, S9441 ASTHMA ED NON-MD PROV PER SESSION, 97079 PT-FOCUSED HLTH RISK ASSMT, G8427 DOC [place] VERIFIED W/[place], [address] NEB/MDI DEMO, Modifiers: 59 * Preventive Medicine: Counseling: M edication instruction: W atch for side effects of prescribed medications, Nasal steroid/antihistamine instruction: avoid septum. E ducation: G ENERAL EDUCATION: Our staff spent an additional 30 minutes in direct contact with the patient educating them on their current diagnoses and proper treatment and prevention of symptoms and the proper use of medications. E ducation 2: A RC EDUCATION: Our staff discussed the appropriate allergen avoidance measures and medication utilization including upper airway hygiene with daily nasal washes given the patient's clinical status and diagnoses. SCIT EDUCATION: Discussed allergy immunotherapy including the relative risks, benefits and alternatives to this treatment as an adjunctive measure to current therapy, Allergy Immunotherapy: Risks: bleeding, infection, allergic reaction, anaphylaxis = severe allergic reaction that can cause ; Benefits: reduced need for medications, improved symptoms, disease modification. Alternatives: watch/wait, change medication regimen, improve allergy avoidance measures, Our staff discussed the warning signs of anaphylaxis and the indications to use self-injectable epinephrine and seek urgent or emergent care. P atient education material sent to portal? Y es * Follow Up: 4 Weeks (Reason: Evaluation and Management) * Billing Information: * Visit Code: * Procedure Codes: 38482 PRICK TESTS. Units: 72.00. 34542 INTRADERMAL TESTS. 34418 MEASURE BLOOD OXYGEN LEVEL. 00941 SELF-MGMT EDUC & TRAIN, 1 PT. S9441 ASTHMA ED NON-MD PROV PER SESSION. 51293 PT-FOCUSED HLTH RISK ASSMT. G8427 DOC MEDS VERIFIED W/[place]. [address] NEB/I DEMO. Modifiers: 59 * Electronic signature of Arlen Roland MD on 11/20/2025 at 09:40 AM WELDER EXPERIMENTAL Sign off status: Pending * Provider: David Roland MD Date: 1 Generated for Printi ng/Falarsg/eTransmitting on: 09:40 AM WELDER EXPERIMENTAL History and Physical Notes * HPI (History of Present Illness) Category Sub-Category Detail Notes Category Not es *Introduction HPI: x Examination Category Sub-Category Detail Notes Category Not es General examination HEENT: pupils equal , round, and reactive to light and accommodation, conjunctiva are injected bilaterally, no tenderness to palpation of the sinuses, TM's without evidence of acute infection, turbinates 2+ swollen and pale inferiorly bilaterally, clear rhinorrhea is present, no polyps noted, no septal perforation, posterior oropharynx is erythematous and cobblestoning is present, erythema on pharyngeal wall, no exudates, no tongue swelling, and uvula is midline Neck, thyroid : supple, non-tender, no anterior cervical lymphadenopathy Heart: RRR, S1-S2, no murmu rs, no rubs, no gallops Lungs: clear to auscultatio n and percussion in all lung bass, no wheezes or crackles Abdomen: soft, NT/ND, normal active bowel sounds Extremities: normal ROM, no clubb ing, no cyanosis, no edema General appearance: pleasant, well-devel oped, well-nourished Skin: normal, no rash, kathya matographism, urticaria, angioedema Neurologic exam: unremarkable Oral cavity: normal, no lesions Breasts : not performed Peripheral pulses: normal (2+) bilatera lly Back: normal Genitalia: not performed
--- OUTSIDE RECORDS SUMMARY | 2025-11-13 11:30 | XMS_ITS ---
Author Organization [facility] [place] ([address]) Address [address] [place] [address] Care Team Providers Care Machine Tester Name Role Phone Ashish Gonzalez Primary Care Provider UnavailFelicity Forrest Unavailable [phone] REASON FOR VISIT ARC follow-up Social History Sex Assigned At : Social History Observation Description Sex Assigned At Female Encounters Encounter Location Date Provider Diagnosis [facility] [address] [place] [address] 2025 Felicity Roland Plan Of Treatment No Information Progress Notes * Jordan LOPEZOB :1975 (50 yo F)Acc No.[id number]:2025 Progress Notes Patient: Sheree ZIEGLERMANGOAdrianApple Provider: David Roland MD :1975 A ge:50 Y S ex:Female Date:2025 Address:[address] [facility] Pcp:Ashish Gonzalez Subjective: * Chief Complaints: * 1 . ARC follow-up. * Medical History: Objective: * Vitals: Assessment: Plan: * Treatment: * Billing Information: * Visit Code: * Procedure Codes: * Electronic signature of Arlen Roland MD on 11/20/2025 at 09:39 AM ROBOTYPE OPERATOR Sign off status: Pending * Provider: David Roland MD Date: 01/14/2025 Generated for Leandro lucas/Gabriel/Tiffany on: 09:39 AM ROBOTYPE OPERATOR
--- NOTE | ~2025-11-20 | MMUS_ITS ---
EXAMINATION: MM diagnostic lisa RT w jack, US breast RT limited HISTORY: Additional imaging TECHNIQUE: Craniocaudal and mediolateral oblique 3-D tomosynthesis images were obtained and synthetic 2-D images were generated. CAD analysis was submitted and interpreted. Grayscale sonography over the area(s) of interest with color Doppler if there is a finding. COMPARISON: October 022023 and 2022. BREAST PARENCHYMAL COMPOSITION: Dense: The breasts are heterogeneously dense MAMMOGRAM FINDINGS: A mass persists in the dense tissue of the right upper outer quadrant. It contains many calcifications (a change), some of which are fine or pleomorphic. One appears to represent milk of calcium. The mass itself is unchanged in size on multiple prior studies. The calcifications representing change. They could represent calcification of a fibroadenoma, but this cannot be stated with certainty. No unexplained architectural distortion is seen. There are no skin or nipple abnormalities identified. There is no adenopathy seen on the images submitted. ULTRASOUND FINDINGS: At 10:00, there is a circumscribed, ovoid, heterogeneous, hypoechoic mass with a maximum dimension of 13 mm. It contains a few bright reflectors. This is consistent with the mammographic calcifications. IMPRESSION: Circumscribed mass, stable in size. It does appear to to have begun to calcify. The calcifications themselves are indeterminate. Ultrasound-guided biopsy is recommended, with radiography of the specimens to assess for calcifications. If the biopsy marker is not in the mammographic mass and no calcifications are seen in the specimen, it is possible, though unlikely, that stereotactic/tomographic guided biopsy of the calcifications would be necessary. BI-RADS 4 - Suspicious for malignancy. Tissue diagnosis is recommended. Reviewed, dictated and finalized at location A. H AND FURNACE OPERATOR IMPRESSION: Circumscribed mass, stable in size. It does appear to to have begun to calcify. The calcifications themselves are indeterminate. Ultrasound-guided biopsy is r ecommended, with radiography of the specimens to assess for calcifications. If the biopsy marker is not in the mammographic mass and no calcifications are see n in the specimen, it is possible, though unlikely, that stereotactic/tomograph ic guided biopsy of the calcifications would be necessary. BI-RADS 4 - Suspicious for malignancy. Tissue diagnosis is recommended.
--- OUTSIDE RECORDS SUMMARY | 2025-11-20 09:39 | XMS_ITS | Patient Health Record ---
Author Organization [employer] Address [address] [place] [address] Care Team Providers Care Heating Equipment Installer Name Role Phone Tala Schmitz MD Primary Care Provider Unavai lable Allergies Allergen (clinical drug ingredient) Drug/Non Drug Allergy documented on EMR Reaction Allergy Type Onset Date Status venlafaxine Venlafaxine Unknown Drug Allergy Act dany Reason For Referral No Information Medications Medication SIG (Take, Route, Frequency, Duration) Notes Start Date End Date Status OTC/Vitamins Napoleon Oil, Folic Acid, Vit E, Vit D3, Biotin Active Aimovig Active Zolpidem Tartrate Ac tive Topiramate Active Dicyclomine HCl Acti ve Pantoprazole Sodium 40 MG as directed Orally Once a day Active Sucralfate 1 GM TAKE 1 TABLET BY MOUTH TWICE DAILY ON AN EMPTY STOMACH; Duration: 90 Active Ubrelvy Active ALPRAZolam Active HYDROcodone-Acetaminop hen Active Immunizations Vaccine Route Administration Date Status Comme nts Influenza Vaccination Unknown 09/06/2022 Administered Pneumococcal conjugate PCV 13 Unknown 09/24/2022 Refuse d Social History Tobacco Use: Social History Observation Description Date Details (start date - stop date) Never Smoker NA - NA Tobacco Use/Smoking Question Answer Notes Are you a nonsmoker Problems Problem Type SNOMED Code ICD Code Onset Dates Problem Status W/U Status Risk Notes Problem Acid reflux (327318354) Acid reflux (K21.9) Active confirmed I am adding sucralfate to her regimen today. No role for repeat EGD at this time. Plan Of Treatment No Information Insurance Providers Payer Name Payer Address Payer Phone Subscriber Number Group Number Insured Name Patient Relationship to Insured Coverage Start Date Coverage End Date [employer] PPO [id number] [address] [place] [address] [id number] Edilson Ge Spouse - patient is the spouse of the insured Medical (General) History Medical History History ICD Code Migraines Surgical History Surgery Date(Month/Year) EGD (Dr. Brenda Damon) 01/2022 Colonoscopy 12/2021 Gastric Bypass Cholecystectomy Tonsillectomy Sebaceous Cystectomy Holcomb's Neuroma Hospitalization History Reason Date(Month/Year) Abnormal EKG, enlarged aorta 09/2020
--- OUTSIDE RECORDS SUMMARY | 2025-11-20 09:40 | XMS_ITS | Patient Health Record ---
Author Organization [facility] ([address]) Address [address] [address] Care Team Providers Care Loader Helper Name Role Phone Ashish Gonzalez Primary Care Provider UnavailFelicity Forrest Unavailable [phone] Vito Chin Unavailable [phone] Sis García Unavailable [phone] Allergies Allergen (clinical drug ingredient) Drug/Non Drug Allergy documented on EMR Reaction Allergy Type Onset Date Status venlafaxine Venlafaxine Unknown Drug Allergy Act dany Results Component Value Reference Range Notes HRT Female Pre Pellet Reviewed date:07/03/2025 04:01:09 PM Interpretation: Performing Lab:[facility], [address] [place] [id number], Phone - [phone], Director - Anahi Notes/Report: Glucose 91 70-99 mg/dL BUN 9 6-24 mg/dL Creatinine 0.66 0.57-1.00 mg/dL eGFR 106 >59 mL/min/1.73 BUN/Creatinine Ratio 14 9-23 Sodium 137 134-144 mmol/L Potassium 3.5 3.5-5.2 mmol/L Chloride 104 96-106 mmol/L Carbon Dioxide, Total 17 20-29 mmol/L Calcium 9.2 8.7-10.2 mg/dL Protein, Total 7.1 6.0-8.5 g/dL Albumin 4.4 3.8-4.9 g/dL Globulin, Total 2.7 1.5-4.5 g/dL Bilirubin, Total 0.3 0.0-1.2 mg/dL Alkaline Phosphatase 84 44-121 IU/L AST (SGOT) 22 0-40 IU/L ALT (SGPT) 25 0-32 IU/L Vitamin B12 842 318-4685 pg/mL Vitamin D, 25-Hydroxy 15.7 30.0-100.0 ng/mL Vitamin D deficiency has been defined by the [place] of [employer] and an Endocrine Society practice guideline as a level of serum 25-OH vitamin D less than 20 ng/mL (1,2). The Endocrine Society went on to further define vitamin D insufficiency as a level between 21 and 29 ng/mL (2). 1. IOM ([place] of [employer]). 2010. Dietary reference intakes for calcium and D. [place]: The National [employer]Covert[employer] Press. 2. [place] MF, Soheila TOLEDO, Amari ENRIQUEZ, et al. Evaluation, treatment, and prevention of vitamin D deficiency: an Endocrine Society clinical practice guideline. JCEM. 2010; 96(6):1911-30. TSH 2.010 0.450-4.500 uIU/mL Triiodothyronine (T3), Free 1.8 2.0-4.4 pg/mL T4,Free(Direct) 0.97 0.82-1.77 ng/dL Thyroid Peroxidase (TPO) Ab <9 0-34 IU/mL Testosterone 17 4-50 ng/dL FSH 10.2 Adult Female Range Follicular phase 3.5 - 12.5 Ovulation phase 4.7 - 21.5 Luteal phase 1.7 - 7.7 Postmenopausal 25.8 - 134.8 Estradiol 270.0 Adult Female Range Follicular phase 12.5 - 166.0 Ovulation phase 85.8 - 498.0 Luteal phase 43.8 - 211.0 Postmenopausal <6.0 - 54.7 1st trimester 215.0 - >4300.0 Haider ECLIA methodology WBC 7.7 3.4-10.8 x10E3/uL RBC 4.48 3.77-5.28 x10E6/uL Hemoglobin 13.0 11.1-15.9 g/dL Hematocrit 40.7 34.0-46.6 % MCV 91 79-97 fL MCH 29.0 26.6-33.0 pg MCHC 31.9 31.5-35.7 g/dL RDW 13.7 11.7-15.4 % Platelets 398 150-450 x10E3/uL Neutrophils 69 Not Estab. % Lymphs 21 Not Estab. % Monocytes 6 Not Estab. % Eos 3 Not Estab. % Basos 1 Not Estab. % Neutrophils (Absolute) 5.4 1.4-7.0 x10E3/uL Lymphs (Absolute) 1.6 0.7-3.1 x10E3/uL Monocytes(Absolute) 0.5 0.1-0.9 x10E3/uL Eos (Absolute) 0.2 0.0-0.4 x10E3/uL Baso (Absolute) 0.1 0.0-0.2 x10E3/uL Immature Granulocytes 0 Not Estab. % Immature Grans (Abs) 0.0 0.0-0.1 x10E3/uL Reason For Referral No Information Medications Medication SIG (Take, Route, Frequency, Duration) Notes Start Date End Date Status HYDROcodone-Acetaminophen 5-325 MG Oral; Duration: 15 Days Acti ve Singulair 10 MG 1 tablet Orally Once a day Active Levocetirizine Dihydrochloride 5 MG 1 tablet in the evening Orally Once a day; Duration: 30 days 10/02/2025 Active valACYclovir HCl 1 GM TAKE 1 TABLET BY M OUT THREE TIMES DAILY FOR 7 DAYS Oral; Duration: 7 Days Active Fluticasone Propionate 50 MCG/ACT 2 sprays in each nostril Nasally Twice a day; Duration: 30 days 10/02/2025 Active Ubrelvy 100 MG 1 tablet Orally twice a day; Duration: 30 days As needed Active Topiramate 50 MG 2 tablets in AM, then 3 tablets in PM Orally as directed (total 250 mg daily) 05/09/2025 Active Emgality 120 MG/ML 2 injections as LOAD ING DOSE for the first month Subcutaneous once; Duration: 28 days 05/07/2025 Active Mirabegron ER 50 MG TAKE 1 TABLET BY ARACELIS TH DAILY Oral; Duration: 20 Days Active Eszopiclone 3 MG TAKE 1 TABLET BY ARACELIS TH EVERY DAY Oral; Duration: 30 Days Active ALPRAZolam 0.5 MG TAKE 1 TABLET BY ARACELIS TH THREE TIMES DAILY NEEDED Oral; Duration: 30 Days Active Social History Tobacco Use: Social History Observation Description Date Details (start date - stop date) Never Smoker NA - NA Sex Assigned At : Social History Observation Description Sex Assigned At Female Smoking Smart Form: Question Answer Notes Are you a: never smoker Problems Problem Type SNOMED Code ICD Code Onset Dates Problem Status W/U Status Risk Notes Problem Chronic migraine without aura, non-intractable (731477892492721) Chronic migraine without aura, not intractable, without status migrainosus (G43.709) Active confirmed Problem Chronic allergic conjunctivitis (83618623) Other chronic allergic conjunctivitis (H10.45) Active confirmed Problem Allergic rhinitis caused by pollen (disorder) (11463383) Allergic rhinitis due to pollen (J30.1) Active confirmed Problem Allergic rhinitis (77951114) Other allergic rhinitis (J30.89) Active confirmed Problem Allergic rhinitis caused by animal hair and dander (750474291344603) Allergic rhinitis due to animal (cat) (dog) hair and dander (J30.81) Active confirmed Vital Signs Temperature 98.4 degrees Fahrenheit 05/21/2025 Respiratory Rate 16 /min 05/21/2025 Oximetry 99 % 10/02/2025 Blood pressure diastolic 78 mm Hg 10/02/2025 Height 66 in 10/02/2025 Blood pressure systolic 123 mm Hg 10/02/2025 Weight 149.0 lbs 10/02/2025 BMI 24.05 kg/m2 10/02/2025 Encounters Encounter Location Date Provider Diagnosis [facility] ([address]) [address] [place] [address] 04/25/2025 [facility] ([address]) [address] [place] [address] 06/13/2025 [facility] ([address]) [address] [place] [address] 06/04/2025 [facility] ([address]) [address] [place] [address] 05/21/2025 Vito Chin Hormone replacement therapy Z79.890 [facility] ([address]) [address] [place] [address] 05/14/2025 Vito Chin Hormone replacement therapy Z79.[address] [place] [address] 06/21/2025 Sis García Chronic migraine without aura, not intractable, without status migrainosus G43.709 ; Drug-induced headache, not elsewhere classified, not intractable G44.40 and Myalgia, unspecified site M79.[address] [place] [address] 06/07/2025 Sis García Chronic migraine without aura, not intractable, without status migrainosus G43.709 ; Drug-induced headache, not elsewhere classified, not intractable G44.40 and Myalgia, unspecified site M79.10 [facility] ([address]) [address] [place] [address] 04/30/2025 Vito Chin Hormone replacement therapy Z79.[address] [place] [address] 10/02/2025 Felicity Roland Allergic rhinitis du e to pollen J30.1 ; Chronic migraine without aura, not intractable, without status migrainosus G43.709 ; Allergic rhinitis due to animal (cat) (dog) hair and dander J30.81 ; Other allergic rhinitis J30.89 and Other chronic allergic conjunctivitis H10.45 [facility] [address] [place] [address] 05/03/2025 Sis García Chronic migraine without aura, not intractable, without status migrainosus G43.709 and Drug-induced headache, not elsewhere classified, not intractable G44.40 [facility] ([address]) [address] [place] [address] 05/21/2025 Vito Chin [facility] ([address]) [address] [place] [address] 07/19/2025 Vito Chin [facility] [address] [address] 05/08/2025 Sis García [address] [address] 05/08/2025 Sis García [address] [address] 11/10/2025 Felicity Roland [address] [address] 11/10/2025 Felicity Asuncion [address] [address] 07/09/2025 Sis García [address] [address] 07/04/2025 Sis García Chronic migraine without aura, not intractable, without status migrainosus G43.[address] [address] 06/25/2025 Sis García Myalgia, unspecified site M79.[address] [address] 06/13/2025 Sis García [address] [address] 06/13/2025 Sis García Assessments Encounter Date Diagnosis (ICD Code) Assessment Notes Treatment Notes Treatment Clinical Notes Section Notes 04/30/2025 Hormone replacement therapy (ICD-10 - Z79.890) 05/03/2025 Chronic migraine without aura, not intractable, without status migrainosus (ICD-10 - G43.709) -Abortive treatment plan: Continue Ubrelvy. Increase quantity to 16 tablets per month. Gave sample of Zavzpret.-Preventi ve treatment plan: Discontinue Aimovig. Start Emgality 240 mg loading dose, then 120 mg. Increase topamax to 100 mg in the morning and 150 mg in the evening (total 250 mg daily).-Educated the patient on migraine lifestyle recommendations. I recommended the following measures: avoid known triggers of migraine, drink > 100 fluid ounces of non-caffeinated fluid daily, limit caffeine to 2 servings/day, sleep 7-8 hours/night and address any sleep concerns with us and report symptoms of snoring or fatigue; healthy management of stress; avoid treating headaches more than 2 days/week with abortive medication unless approved in treatment plan; can take Riboflavin 400 mg and Magnesium 500 mg daily as supplements; keep scheduled follow-up appointments 05/03/2025 Drug-induced headache, not elsewhere classified, not intractable (ICD-10 - G44.40) Limit use of OTC analgesics to 2 days per week or less. Educated patient regarding medication overuse headaches. Advised to avoid taking NSAIDs or acetaminophen > 15 days/month, triptans or DHE > 10 days/month, butalbital > 10 days/month to avoid rebound headaches. 05/14/2025 Hormone replacement therapy (ICD-10 - Z79.890) 05/21/2025 Hormone replacement therapy (ICD-10 - Z79.890) Post infusion vitals BP 127/75, HR 64, R 16,T 98.2, 02 97% 06/07/2025 Chronic migraine without aura, not intractable, without status migrainosus (ICD-10 - G43.709) -Abortive treatment plan: Continue Ubrelvy. Gave samples of Zavzpret. -Preventive treatment plan: Continue Emgality. Continue Topamax. Send PA for Dysport 500 units. She has a history of resistance to Botox.-Educated the patient on migraine lifestyle recommendations. I recommended the following measures: avoid known triggers of migraine, drink > 100 fluid ounces of non-caffeinated fluid daily, limit caffeine to 2 servings/day, sleep 7-8 hours/night and address any sleep concerns with us and report symptoms of snoring or fatigue; healthy management of stress; avoid treating headaches more than 2 days/week with abortive medication unless approved in treatment plan; can take Riboflavin 400 mg and Magnesium 500 mg daily as supplements; keep scheduled follow-up appointments 06/07/2025 Drug-induced headache, not elsewhere classified, not intractable (ICD-10 - G44.40) 06/21/2025 Chronic migraine without aura, not intractable, without status migrainosus (ICD-10 - G43.709) 06/21/2025 Drug-induced headache, not elsewhere classified, not intractable (ICD-10 - G44.40) 06/25/2025 Myalgia, unspecified site (ICD-10 - M79.10) 07/04/2025 Chronic migraine without aura, not intractable, without status migrainosus (ICD-10 - G43.709) 10/02/2025 Chronic migraine without aura, not intractable, without status migrainosus (ICD-10 - G43.709) scheduled to see Dr. Rueda in November. Monitor for improvement as we treat atopic disease. 10/02/2025 Allergic rhinitis due to pollen (ICD-10 - J30.1) Given the history and symptoms, skin testing was performed to common aeroallergens to determine atopic status. Apple clearly suffers from atopic disease based upon our skin testing and clinical history. Accordingly, we have introduced a new, aggressive medication regimen, discussed nasal washes and allergy-specific avoidance measures. We also discussed adjunctive therapies including subcutaneous, specific allergen immunotherapy as relates to the treatment and prevention of atopic disease. She is currently considering the risks, benefits and alternatives to this care. Risks: bleeding, infection, allergic reaction, anaphylaxis; Benefits: reduced need for medications, improved symptoms, disease modification. Alternatives: watch/wait, change medication regimen, improve allergy avoidance measures. Follow-up in 1 month for interval evaluation and management 10/02/2025 Allergic rhinitis due to animal (cat) (dog) hair and dander (ICD-10 - J30.81) Follow allergen avoidance, meds and consider SCIT as an adjunctive treatment to current regimen 06/21/2025 Myalgia, unspecified site (ICD-10 - M79.10) 06/07/2025 Myalgia, unspecified site (ICD-10 - M79.10) Start cyclobenzaprine 5 mg TID PRN. #20. 1 refill. 10/02/2025 Other allergic rhinitis (ICD-10 - J30.89) Follow allergen avoidance, meds and consider SCIT as an adjunctive treatment to current regimen 10/02/2025 Other chronic allergic conjunctivitis (ICD-10 - H10.45) Given ocular signs and symptoms I encouraged allergy avoidance measures and meds as above. If symptoms persist, consider adding additional medications including intraocular antihistamine/mast cell stabilizer, PRN 05/21/2025 Other Discussed recommendations for the following supplements:-Vitam in D, Biote ADK 10 or Pure Encapsulations Vitamin D3-Biote Methyl factors or Pure Encapsulations B-Complex Plus-Fatty 15 10/02/2025 Other Plan Of Treatment No Information Insurance Providers Payer Name Payer Address Payer Phone Subscriber Number Group Number Insured Name Patient Relationship to Insured Coverage Start Date Coverage End Date [facility] Choice Plus [address] [address] [place] [address] [id number] Promise Apple Ge Self - patient is the insured [facility] [address] [place] [address] [id number] Edilson Ge Spouse - patient is the spouse of the insured 4 Medical (General) History Medical History History ICD Code Migraine headache Surgical History Surgery Date(Month/Year) gastric bypass 2014 cholecystectomy 2015
--- OUTSIDE RECORDS SUMMARY | 2025-11-20 09:40 | XMS_ITS | Clinical Summary ---
Author Organization [facility] Address [address] [facility] Attn: [place] [address] Care Team Providers Care Processing Associate Name Role Phone Apple Arevalo MD Primary Care Provider Social History Tobacco Use Types Packs/Day Years Used Date Smoking Tobacco: Never Assessed Comments Unknown Sex and Gender Information Value Date Recorded Sex Assigned at Not on file Legal Sex Female 5:25 PM RN IMAGING Gender Identity Not on file Sexual Orientation Not on file Plan of Treatment Upcoming Encounters Date Type Department Care Team (Late st Contact Info) Description 12/19/2025 9:00 AM RN IMAGING Office Visit [facility] Neurology [facility] [id number] [address] [place] [address] [facility] [address] [place] [address] Health Maintenance Due Date Last Done Comments DTAP/TDAP/TD VACCINES (1 - Tdap) 1992 HEPATITIS B VACCINES (1 of 3 - 19+ 3-dose series) 10/23 HPV/Cotest (21-29) 1994 CERVICAL CANCER SCREENING 2003 HPV/Cotest (30-65) 2003 PAP SMEAR 2003 BREAST CANCER SCREENING 2013 COLORECTAL SCREENING 2018 Colorectal Cancer Screening 2018 FIT-DNA Q 3 years 2018 FIT/FOBT Q 1 year 2018 Flex Sig/CT Colonography Q 5 years 2018 ZOSTER VACCINE (1 of 2) 2023 INFLUENZA VACCINE (#1) 2025 Care Teams Processing Associate Relationship Specialty Start Date End Date Apple Arevalo MD [address] [place] [id number] PCP - General 12/14/13
--- OUTSIDE RECORDS SUMMARY | 2025-11-20 09:40 | XMS_ITS | Patient Health Record ---
Author Organization [facility] Address [address] [facility] [address] [place] [address] Support Name Relationship Address Phone Solomon Ge Emergency Contact Unknown Alejandro Lopez Guarantor Unknown [phone] Allergies No Known Allergies Reason For Referral No Information Plan Of Treatment No Information Insurance Providers Payer Name Payer Address Payer Phone Subscriber Number Group Number Insured Name Patient Relationship to Insured Coverage Start Date Coverage End Date [facility] Choice Plus [address] [address] [place] [address] [id number] Alejandro Miller Self - patient is the insured 9
--- OUTSIDE RECORDS SUMMARY | 2025-11-20 09:40 | XMS_ITS | Clinical Summary ---
Author Organization [facility] Address [address] [place] [address] Care Team Providers Care Cylinder Steamer Name Role Phone Gifty Vasquez MD Unavailable [phone] Ashish Gonzalez MD Primary Care Provider [phone] Source Comments [facility],non-owned Affiliates and Associated Physician Practices is amultiple site organization consisting of ambulatory clinics and hospital sitesin [place], [place], [place] and [place]. This disclosure is being madepursuant to the Care Everywhere program and may not contain all information available regarding this patient. Last updated 18.[facility] Allergies Active Allergy Reactions Criticality Noted Date Comments Venlafaxine Eye Itching,Headache,Vision Changes Medium 04/11/2021 Medications * Be aware that medications may not be up to date on this document. Alwaysverify current medications with the patient. Folic Acid 800 MCG Take 800 mcg by mouth once daily Active valACYclovir (VALTREX) 1 GM tablet TK 2 TS PO Q 12 H 0 Active traMADol (ULTRAM) 50 MG tablet TK 1 T PO QD PRF ENRIQUEZ 0 Active topiramate (TOPAMAX) 100 MG tablet TK 1 T PO BID 0 Active zolpidem (AMBIEN) 10 MG tablet zolpidem 10 mg tablet TAKE 1 TABLET BY MOUTH EVERY NIGHT AT BEDTIME NEEDED FOR INSOMNIA Active erenumab-aooe (AIMOVIG) 140 MG/ML auto injector pen Aimovig Autoinjector 140 mg/mL subcutaneous auto-injector INJECT 1 ML UNDER THE SKIN ONCE Active ALPRAZolam (Xanax) 0.5 MG tablet Take 0.5 mg by mouth 2 times daily as needed 2 Active Ubrelvy 100 MG tablet 2 Active HYDROcodone-richmond taminophen ([place]) 5-325 MG tablet TAKE 1 TABLET BY MOUTH EVERY 6 HOURS NEEDED FOR MIGRAINE 2 Active pantoprazole EC (Protonix) 40 MG tablet Take 40 mg by mouth once daily 2 Active Biotin 5000 MCG Take 1 tablet by mouth once daily Active Cholecalciferol (Vitamin D) 50 MCG (2000 UT) capsule Take 2,000 Units by mouth once daily Active Probiotic Product (PROBIOTIC PO) Activ e Tlhtty-PsEdc-Oc Dms-Pmtp-VL-DHA (Prenate Mini) 18-0.6-0.4-350 MG CAPS Take 1 capsule by mouth once daily 90 capsule 3 2 Active Additional Information Patient not taking.Reported on 04/13/2025 eszopiclone (Lunesta) 3 MG tablet Active nortriptyline (Pamelor) 10 MG capsule Take 1 (one) capsule by mouth at bedtime 90 capsule 1 5 Active Active Problems Problem Noted Date Diagnosed Date Gastroesophageal reflux disease without esophagi tis 01/14/2022 Migraine 06/21/2019 Fibroid Anxiety MTHFR mutation Endometriosis S/P gastric bypass Immunizations Immunization Administration Dates Next Due Covid Moderna primary monova lent 12+ yr 0.5mL 02/11/2021,01/01/2021 INFLUENZA VACCINE, QUADR. (F LUZONE; FLULAVAL; FLUARIX; AFLURIA QUADRIVALENT; 6MO+), 0.5 ML (IIV4) 09/04/2021,09/04/2020,09/18/2019 Family History Medical History Relation Name Comments CAD (Coronary Artery Disease) Father Cancer - Other Father tonsil Cancer - Breast Maternal Grandmother Relation Name Status Comments Brother Alive Father Alive Maternal Grandfather Maternal Grandmother Mother Alive Paternal Grandfather Paternal Grandmother Social History Tobacco Use Types Packs/Day Years Used Date Smoking Tobacco: Never Smokeless Tobacco: Never Alcohol Use Standard Drinks/Week Comments Yes 0 (1 standard drink = 0.6 oz pur e alcohol) occ PHQ-2 Answer Date Recorded PHQ2 TOTAL SCORE 0 07/29/2022 Comments No Sex and Gender Information Value Date Recorded Sex Assigned at Not on file 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 Gender Identity Not on file Sexual Orientation Not on file Last Filed Vital Signs Vital Sign Reading Time Taken Comments Blood Pressure 108/70 04/13/2025 8:24 AM CDT Pulse 72 04/13/2025 8:24 AM CDT Temperature 37.5 C (99.5 F) 07/05/2020 2:44 PM CDT Respiratory Rate - - Oxygen Saturation 99% 04/13/2025 8:24 AM CDT Inhaled Oxygen Concentration - - Weight 68 kg (150 lb) 04/13/2025 8:24 AM CDT Height 167.6 cm (5' 6) 04/13/2025 8:24 AM CDT Body Mass Index 24.21 04/13/2025 8:24 AM CDT Plan of Treatment Health Maintenance Due Date Last Done Comments COLOGUARD (AGES 45-75) - COLON CA SCREENING 1973 COLON MONITORING 1973 COLONOSCOPY - COLON CA SCREENING 1973 CT COLONOGRAPHY - COLON CA SCREENING 1973 Colorectal Cancer Screening 1973 FIT - COLON CA SCREENING 1973 FLEX SIG - COLON CA SCREENING 1973 LIPID TESTING 1973 HIV SCREENING 1988 HEPATITIS C SCREENING 11/09/1991 DTAP/TDAP/TD VACCINES (1 - Tdap) 1992 HEPATITIS B VACCINE (1 of 3 - 19+ 3-dose series) 1992 PAP with HPV 06/22/2023 06/22/2018 MAMMOGRAM 10/29/2023 10/29/2021, 06/2021, 10/29/2021 (Done Outside Per Report), Additional history exists PNEUMOCOCCAL VACCINE 50+ (1 of 1 - PCV) 2023 ZOSTER VACCINE (1 of 2) 2023 DEPRESSION SCREENING 11/22/2024 07/29/2022 COVID-19 VACCINE ( - 2025-26 season) 2025 12/11/2021, 02/11/2021, 01/01/2021 INFLUENZA VACCINE (#1) 2025 , 09/04/2020, 09/18/2019 HIB VACCINE Aged Out No longer eligi ble based on patient's age to complete this topic HPV VACCINE Aged Out No longer eligi ble based on patient's age to complete this topic MENINGOCOCCAL (Group B) VACCINE SHARED DECISION-MAKING Aged Out No longer eligible based on patient's age to complete this topic MENINGOCOCCAL GROUPS A/C/Y/W VACCINE Aged Out No longer eligible based on patient's age to complete this topic Procedures Procedure Name Priority Date/Time Associated Diagnosis Comments MAMMOGRAPHY ORDER Routine 10/09/2020 PAP IG LB+HPV APTIMA Routine 06/22/2018 4:47 PM CDT Well woman exam from Last 3 Months or Most Recently Relevant to Health Maintenance Results * MAMMOGRAPHY ORDER (10/09/2020) Anatomical Region Laterality Modality Mammography us Gifty Vasquez MD MAMMO ORDERABLES Final Resu lt * PAP IG LB+HPV APTIMA (06/22/2018 4:47 PM CDT) Diagnosis [facility] ACCOUNT BILL Comment:NEGATIVE FOR INTRAEP ITHELIAL LESION AND MALIGNANCY. Specimen Adequacy [facility] ACCOUNT BILL Comment: Satisfactory for evaluation. Endocervical and/or squamous metaplastic cells (endocervical component) are present. Clinician Provided ICD10 [facility] ACCOUNT BILL Comment:Z01.419 Performed by [facility] ACCOUNT BILL Comment:Rico Villegas totechnologist Comment . [facility] ACCOUNT BILL Note [facility] ACCOUNT BILL Comment: The Pap smear is a screening test designed to aid in the detection of premalignant and malignant conditions of the uterine cervix. It is not a diagnostic procedure and should not be used as the sole means of detecting cervical cancer. Both false-positive and false-negative reports do occur. . IGLBP CPT Code Automation [facility] ACCOUNT BILL Comment: This liquid based ThinPrep(R) pap test was screened with the use of an image guided system. Human papillomavirus Aptima Negative Negative [facility] ACCOUNT BILL Comment: This test detects fourteen high-risk HPV types (16/18/31/33/35/39/45/ 51/52/56/58/59/66/68) without differentiation. PART OF UTERINE CERVIX / Unknown 06/22/2018 4:47 PM CDT 06/23/2018 Narrative [facility] ACCOUNT BILL - 06/27/2018 9:07 PM CDT No. of containers..01 ThinPrep Vial Resulting Agency Comment [facility] [place] [place] [id number] Gifty Vasquez MD LAB - PATHOLOGY/CYTOLOGY OR DERABLES Final Result [facility] ACCOUNT BILL [address] [place] [address] from Last 3 Months or Most Recently Relevant to Health Maintenance Insurance [facility] Care Teams Cylinder Steamer Relationship Specialty Start Date End Date Ashish Gonzalez MD [address] [place] [id number] PCP - General Internal Medicine 03/16/25 Gifty Vasquez MD [address] [place] [address] Obstetrics and Gynecology 02/01/18
--- OUTSIDE RECORDS SUMMARY | 2025-11-20 09:40 | XMS_ITS | Clinical Summary ---
Author Organization [facility] Address [address] [place] [address] Care Team Providers Care Charge Histotechnologist Name Role Phone Ashish Gonzalez MD Primary Care Provider Allergies Active Allergy Reactions Criticality Noted Date Comments Venlafaxine Eye irritation,Headache,Vision changes Medium 04/11/2021 Medications vit 90-xdtf-iawre-d cazares 18-1-350 mg capsule Active ALPRAZolam (XANAX) 0.5 mg tablet alprazolam 0.5 mg tablet TK 1 T PO QD PRN Active erenumab-aooe 140 mg/mL auto-injector Aimovig Autoinjector 140 mg/mL subcutaneous auto-injector INJ 1 ML SC ONCE Active HYDROcodone-richmond taminophen (NORCO) 5-325 mg per tablet hydrocodone 5 mg-acetaminophen 325 mg tablet TK 1 T PO Q 6 H PRN Active topiramate (TOPAMAX) 100 mg tablet Take 1 tablet (100 mg total) by mouth 2 (two) times a day 0 Active mirabegron ER (MYRBETRIQ) 50 mg tablet extended release 24 hr Take 1 tablet (50 mg total) by mouth daily Active Ubrelvy 100 mg tablet TAKE 1 TABLET BY MOUTH EVERY DAY NEEDED FOR MIGRAINE. DO NOT EXCEED 1 IN 24 HOURS Active Active Problems Problem Noted Date Diagnosed Date Venous insufficiency of both lower extremities 1 12/16/2023 Assessment & Plan (10/16/2024 4:01 PM SENIOR MANAGEMENT CONSULTANT): Check Venous reflux study. Numbness of extremity 03/31/2022 Assessment & Plan (03/31/2022 12:09 PM CDT): Unclear etiology. Given edema and temperature changes, may be non-neurologic in primary etiology? Consider alternative migraine medication if she is having topiramate-induced paresthesia Options may include memantine, Botox, duloxetine, verapamil, atogepant Consider referral to vascular surgery for evaluation of vascular TOS, although symptoms are on milder side for TOS Consider referral to Rheumatology although suspect her serologic workup has significantly excluded common connective tissue diseases Given lower suspicion for small fiber neuropathy, it is not clear that a skin biopsy looking for intraepidermal nerve fiber density would elucidate cause of patient's symptoms Chest pain 12/13/2020 Assessment & Plan (12/03/2023 2:58 PM SENIOR MANAGEMENT CONSULTANT): Check CT coronary angiogram. Thoracic aortic aneurysm without rupture 021 Assessment & Plan (12/03/2023 2:58 PM SENIOR MANAGEMENT CONSULTANT): Check CT coronary angiogram to assess aortic root aneurysm as well as coronary anatomy. Anxiety 10/23/2020 Endometriosis 10/23/2020 Fibroid 10/23/2020 MTHFR mutation 10/23/2020 Pain in limb 10/23/2020 S/P gastric bypass 10/23/2020 Migraine 06/21/2019 Pain of ovary 06/21/2019 Encounter for cosmetic procedure 05/18/2019 Assessment & Plan (05/18/2019 9:43 AM CDT): Two weeks status post Fillers to bilateral cheeks Patient is happy with appearance and reports no complications Cheeks appear symmetrical Will return as needed Immunizations Immunization Administration Dates Next Due Influenza, Quadrivalent, Spl it, Preservative Free, Intramuscular 09/04/2020,09/18/2019 Medical History Medical History Date Comments Migraines Family History Medical History Relation Name Comments Cancer Father Reported Family History Of Cancer - Father with throat cancer at 73 (Added by TW Conv) Hypertension Other 1 Reported Previo us High Blood Pressure - (Added by TW Conv) Diabetes Other 2 Diabetes Mellit us - (Added by TW Conv) Obesity Other 3 Obesity - (Adde d by TW Conv) Heart disease Other 4 Heart Disease - (Added by TW Conv) Breast cancer Other 5 Breast Cancer - (Added by TW Conv) Polycystic ovary syndrome Other 6 Po lycystic Ovarian Syndrome - (Added by TW Conv) Anesthesia problems Other 7 Adverse Reaction To Anesthesia - (Added by TW Conv) Relation Name Status Comments Father Other 1 Other 2 Other 3 Other 4 Other 5 Other 6 Other 7 Social History Tobacco Use Types Packs/Day Years Used Date Smoking Tobacco: Never Smokeless Tobacco: Never Comments Unknown Sex and Gender Information Value Date Recorded Sex Assigned at Not on file Legal Sex Female 8:07 AM SENIOR MANAGEMENT CONSULTANT Gender Identity Not on file Sexual Orientation Not on file Last Filed Vital Signs Vital Sign Reading Time Taken Comments Blood Pressure 115/80 2024 8:54 AM SENIOR MANAGEMENT CONSULTANT Pulse 82 2024 8:54 AM SENIOR MANAGEMENT CONSULTANT Temperature 36.3 C (97.4 F) 03/31/2022 10:55 AM CDT Respiratory Rate 16 10/16/2024 1:49 PM SENIOR MANAGEMENT CONSULTANT Oxygen Saturation 99% 2024 8:54 AM SENIOR MANAGEMENT CONSULTANT Inhaled Oxygen Concentration - - Weight 68 kg (149 lb 14.6 oz) 2024 8:54 AM SENIOR MANAGEMENT CONSULTANT Height 167.6 cm (5' 6) 2024 8:54 AM SENIOR MANAGEMENT CONSULTANT Body Mass Index 24.2 2024 8:54 AM SENIOR MANAGEMENT CONSULTANT Plan of Treatment Health Maintenance Due Date Last Done Comments Cervical Cancer Screening 1973 Colon Cancer Screening-Colonoscopy 1973 Depression Screening 1973 Hepatitis C Screening 1973 DTaP/Tdap/Td Vaccine (1 - Tdap) 1984 Hepatitis B Screening 1991 Regular Well Visit/Exam 18-64 1991 Breast Cancer Screening-Mammogram 10/29/2022 10/29/2021, 09/20/2020, 07/26/2019, Additional history exists Zoster Vaccine (1 of 2) 2023 Covid-19 Vaccine ( season) 2025 12/11/2021, 02/11/2021, 01/01/2021 Influenza Vaccine (#1) 2025 1, 09/04/2020, 09/18/2019, Additional history exists Pneumococcal vaccine <65 Aged Out No longer eligible based on patient's age to complete this topic Procedures Procedure Name Priority Date/Time Associated Diagnosis Comments SCREENING MAMMOGRAM BILATERAL W [place] Schedule Routine, Read Routine (OP Routine) 10/29/2021 10:57 AM SENIOR MANAGEMENT CONSULTANT Encounter for screening for nutritional disorder from Last 3 Months or Most Recently Relevant to Health Maintenance Results * Screening Mammogram Bilateral [place] (10/29/2021 10:57 AM SENIOR MANAGEMENT CONSULTANT) Anatomical Region Laterality Modality Breast Bilateral Mammography Narrative 10/30/2021 12:34 PM SENIOR MANAGEMENT CONSULTANT Mammogram Technique: Bilateral Digital Breast Tomosynthesis, Bilateral C-view 2D Screening mammogram. Views obtained: bilateral craniocaudal and bilateral mediolateral oblique. Computer Aided Detection was performed. Mammogram Findings: The present examination has been compared to prior imaging studies performed at [facility] on 07/26/2019, 09/20/2020 and 10/09/2020. The breasts are heterogeneously dense, which may obscure small masses. There is no suspicious abnormality in either breast. Impression: There is no mammographic evidence of malignancy. Annual screening mammography is recommended. OVERALL FINAL ASSESSMENT: BI-RADS CATEGORY 1: Negative. Procedure Note Dee Linton MD - 10/30/2021 Mammogram Technique: Bilateral Digital Breast Tomosynthesis, Bilateral C-view 2D Screening mammogram. Views obtained: bilateral craniocaudal and bilateral mediolateral oblique. Computer Aided Detection was performed. Mammogram Findings: The present examination has been compared to prior imaging studies performed at [facility] on 07/26/2019, 09/20/2020 and 10/09/2020. The breasts are heterogeneously dense, which may obscure small masses. There is no suspicious abnormality in either breast. Impression: There is no mammographic evidence of malignancy. Annual screening mammography is recommended. OVERALL FINAL ASSESSMENT: BI-RADS CATEGORY 1: Negative. us Self Screening Mammogram IMG MAMMO PROCEDURES Fi nal Result from Last 3 Months or Most Recently Relevant to Health Maintenance Insurance [facility] CHOICE PLUS [address] [facility] CHOICE PLUS [employer] Mobile ACCESS [place] [facility] CHOICE PLUS Care Teams Charge Histotechnologist Relationship Specialty Start Date End Date Ashish Gonzalez MD PCP - General Internal Medicine 10/25/24
--- OUTSIDE RECORDS SUMMARY | 2025-11-20 09:40 | XMS_ITS | Clinical Summary ---
Author Organization [facility] Address [address] [place] [address] Care Team Providers Care Hvac Maintenance Technician Name Role Phone Unavailable Primary Care Provider Unavailabl e Immunizations Immunization Administration Dates Next Due Covid-19, Mrna, Lnp-s, Pf, 30 Mcg/0.3 Ml Dose (P fizer) 12/11/2021 Social History Tobacco Use Types Packs/Day Years Used Date Smoking Tobacco: Never Assessed Comments Unknown Sex and Gender Information Value Date Recorded Sex Assigned at Not on file Legal Sex Female 6:26 PM WEBFOCUS DEVELOPER Gender Identity Not on file Sexual Orientation Not on file Plan of Treatment Health Maintenance Due Date Last Done Comments Hepatitis C Virus (HCV) Screening 1973 TdaP Immunization 1973 Hepatitis B Immunization (1 of 3 - 19+ 3-dose series) 1992 Pap Smear 1994 Cervical Cancer Screening (CCS) 2003 HPV/Cotest 2003 Cologuard 2018 Colonoscopy 2018 Colorectal Cancer Screening 2018 Immunochemical Fecal Occult Blood 2018 Pneumococcal Immunization (5 0+ years) (1 of 1 - PCV) 2023 Zoster Immunization (1 of 2) 2023 Influenza Immunization (#1) 07/23/202508/22, 09/18/2019 SARS-COV-2 Immunization ( - 2024- season) 2025 12/11/2021, 02/11/2021, 01/01/2021 Respiratory Syncytial Virus (RSV) Immunization (Adult) (1 - 1-dose 75+ series) 2048 Human Papillomavirus (HPV) Immunization (No Doses Required) Completed Meningococcal Immunization (ACWY) Aged Out No longer eligible b ased on patient's age to complete this topic Rotavirus Immunization Aged Out No lo nger eligible based on patient's age to complete this topic
== END 2025-11-20 09:24 | disposition home or self-care (01) ==
PROVIDERS: PCP Internal Medicine; Visit Provider Obstetrics & Gynecology
DX: R92.0 Mammographic microcalcification found on diagnostic imaging of breast (principal); R92.8 Other abnormal and inconclusive findings on diagnostic imaging of breast
CPT/HCPCS: 76642; 77061; 77065; G0279